=== PATIENT | female | born 1955 | race Caucasian/White ===

== ENCOUNTER 2018-02-25 14:56 | Inpatient (IN) ==
[2018-02-25 16:45] LABS: Baso # (Auto) 0.1 th/mm3 (0.0-0.2); Baso % (Auto) 0.4 % (0.0-2.0); Eos # (Auto) 0.3 th/mm3 (0.0-0.4); Eos % (Auto) 2.3 % (0.0-4.0); Lymph # (Auto) 2.3 th/mm3 (1.0-4.8); Lymph % (Auto) 18.1 % (9.0-44.0); Mean Corpuscular Hemoglobin 36.6 pg (27.0-34.0); Mean Corpuscular Volume 101.7 fL (80.0-100.0); Mean Platelet Volume 8.7 fL (7.0-11.0); Mono % (Auto) 7.5 % (0.0-8.0); Neut # (Auto) 9.1 th/mm3 (1.8-7.7); Neut % (Auto) 71.7 % (16.0-70.0); Platelet Count 255 th/mm3 (150-450); Red Blood Count 1.77 mil/mm3 (4.00-5.30); White Blood Count 12.8 th/mm3 (4.0-11.0)
[2018-02-25 16:53] LABS: Activated Partial Thrombo Time 24.1 sec (23.4-31.7)
[2018-02-25] MEDS ORDERED: Pantoprazole Inj 80 MG in Sodium Chlor 0.9% Inj 100 ML IV.CONT SCH (17:00)
[2018-02-25 17:01] LABS: Hemoglobin 6.5 gm/dL (11.6-15.3)
[2018-02-25 17:05] LABS: Albumin 3.3 g/dL (3.4-5.0); Anion Gap 9 meq/L (5-15); Aspartate Aminotransferase 44 U/L (15-37); Blood Urea Nitrogen 19 mg/dL (7-18); Calcium 8.9 mg/dL (8.5-10.1); Chloride 102 meq/L (98-107); Glomerular Filtration Rate 59 mL/min (>89); Glucose,Random 107 mg/dL (74-106); Potassium 3.9 meq/L (3.5-5.1); Sodium 137 meq/L (136-145)
[2018-02-25 17:06] LABS: Alanine Aminotransferase 31 U/L (10-53)
[2018-02-25 17:08] LABS: Alkaline Phosphatase 64 U/L (45-117); Total Protein 6.8 g/dL (6.4-8.2)
[2018-02-25 17:40] LABS: Eosinophils 1 % (0-4); Lymphocytes 12 % (9-44); Monocytes 2 % (0-8)
--- NOTE | 2018-02-25 17:42 | ED ---
HPI General Chief Complaint: Recheck/Abnormal Lab/Rx Stated Complaint: Anemic Complaint/Doctor Sent Time Seen by Provider: 02/25/18 16:05 Source: patient and family Mode of arrival: ambulatory Limitations: no limitations History of Present Illness HPI narrative: 62-year-old female that presents to the ED for evaluation of abnormal labs. Per patient she went to see her primary care doctor Dr. Frazier yesterday and she was evaluated for shortness of breath and weakness. Per the patient she was evaluated and had some imaging as well as labs. Per patient she was told that the x-rays show some masses on her axilla and chest. Today she received a call that her hemoglobin was low and recommend that she comes here for get a transfusion. She came here for evaluation of this. Per patient she does have a history of anemia but has never had a need for transfusion. She states that yesterday she has some dark stools. She denies having dark stools before. No bleeding from any other source. Denies take any blood thinners. She was told by the Dr. Frazier to start an aspirin yesterday but has not done so. Per patient she does not really take any medications other than [id number] medications. Denies any urinary or bowel movement issues. No chest pain but does complain of shortness of breath with exertion. Feels weak. No history of this in the past. She denies any pain of any kind. Related Data Home Medications Medication Instructions Recorded Confirmed diphenhydramine HCl [Benadryl] 25 mg PO Q4-6H PRN 02/25/18 02/25/18 ranitidine HCl 75 mg PO DAILY PRN 02/25/18 02/25/18 Allergies Allergy/AdvReac Type Severity Reaction Status Date / Time No Known Allergies Allergy Verified 02/25/18 15:39 Review of Systems ROS: all other systems reviewed are negative [facility] Medical History Medical History Anemia (Acute) GERD (gastroesophageal reflux disease) (Acute) Hiatal hernia (Acute) Surgical History Surgical History History of section (Acute) Hx of appendectomy (Acute) Social History Social History Substance History: No History of Abuse Second Hand Smoke Exposure: Yes Smoking Status: Current every day smoker Tobacco Type: Cigarettes How Often Do You Have a Drink Containing Alcohol: Never Recent Travel in [facility] within the Last 8 Weeks: No Recent Out of Country Travel within the Last 8 Weeks: No Immunization History Tetanus Immunization: <5 Years Exam Narrative Exam Narrative: GENERAL: Well-appearing SKIN: Focused skin assessment warm/dry. HEAD: Atraumatic. Normocephalic. EYES: Pupils equal and round. No scleral icterus. No injection or drainage. ENT: No nasal bleeding or discharge. Mucous membranes pink and moist. Tongue is midline. No uvula deviation. NECK: Trachea midline. No JVD. CARDIOVASCULAR: Regular rate and rhythm. No murmur appreciated. RESPIRATORY: No accessory muscle use. Clear to auscultation. Breath sounds equal bilaterally. GASTROINTESTINAL: Abdomen soft, non-tender, nondistended. Hepatic and splenic margins not palpable. Rectal exam done with female nurse present at all times. No obvious blood but there is focal blood and Hemoccult positive. MUSCULOSKELETAL: No obvious deformities. No clubbing. No cyanosis. No edema. Full range of motion of the upper and lower extremities bilaterally. 2+ pulses bilaterally. NEUROLOGICAL: Awake and alert. No obvious cranial nerve deficits. Motor grossly within normal limits. Normal speech. PSYCHIATRIC: Appropriate mood and affect; insight and judgment normal. Procedures Hemaprompt Stool Procedural Steps Taken: specimen placed in appropriate test area, developer placed on specimen and control areas and controls appropriately positive and negative Hemaprompt Stool Result: positive Course Initial Documented Vital Signs Temperature 98.4 F 02/25/18 15:37 Pulse Rate 103 H 02/25/18 15:37 Respiratory Rate 20 02/25/18 15:37 Blood Pressure 118/57 L 02/25/18 15:37 Pulse Oximetry 100 02/25/18 15:37 Last Documented Vital Signs Temperature 98.4 F 02/25/18 15:37 Pulse Rate 115 H 02/25/18 17:34 Respiratory Rate 15 02/25/18 16:12 Blood Pressure 110/63 02/25/18 16:12 Pulse Oximetry 99 02/25/18 16:24 Medical Decision Making MDM Narrative Medical decision making narrative: 62-year-old female that presents to the ED for evaluation of symptomatic anemia. Patient was properly examined and was found to have signs and symptoms consistent with anemia. Labs and imaging were ordered here. Hemoccult was positive. Likely this is GI bleed related. Patient's hemoglobin here is 6.5 at the recommend transfusion of 2 units at least for now. Patient has no history of heart disease. Dr. Frazier actually call me to let me know about the patient. He apparently did a full workup yesterday and all the blood work came back today which is why the patient was brought here. He prefers to the patient be admitted to have a GI consult as well as possible CT chest with contrast done to see what the masses are as he is concerned that this could be tumor related as well. Patient was told results and agrees with admission plan. Case discussed with Dr. Vargas who agrees admission to his service. Patient was already started by me on Protonix drip as well as the 2 units of blood were ordered by me. Medical Screen Exam Complete: Yes Emergency Medical Condition: Yes Differential Diagnosis Differential Diagnosis: GI bleed versus symptomatic anemia versus chest mass versus cancer versus peptic ulcer disease Medical Records Medical records reviewed: Yes I reviewed the patient's medical records. Lab Data Lab results reviewed: Yes I reviewed the patient's lab results. Result diagrams: 02/25/18 15:28 02/25/18 15:28 Lab Results 02/25/18 02/25/18 02/25/18 Range/Units 15:28 15:28 15:28 WBC 12.8 H (4.0-11.0) th/mm3 RBC 1.77 L (4.00-5.30) mil/mm3 Hgb 6.5 L* (11.6-15.3) gm/dL Hct 18.0 L* (35.0-46.0) % MCV 101.7 H (80.0-100.0) fL MCH 36.6 H (27.0-34.0) pg MCHC 36.0 (32.0-36.0) % RDW 16.0 (11.6-17.2) % Plt Count 255 (150-450) th/mm3 MPV 8.7 (7.0-11.0) fL Prelim Diff (Auto) Slide review pending Neut % (Auto) 71.7 H (16.0-70.0) % Lymph % (Auto) 18.1 (9.0-44.0) % [place] % (Auto) 7.5 (0.0-8.0) % Eos % (Auto) 2.3 (0.0-4.0) % Baso % (Auto) 0.4 (0.0-2.0) % Neut # (Auto) 9.1 H (1.8-7.7) th/mm3 Lymph # (Auto) 2.3 (1.0-4.8) th/mm3 [place] # (Auto) 1.0 H (0.0-0.9) th/mm3 Eos # (Auto) 0.3 (0.0-0.4) th/mm3 Baso # (Auto) 0.1 (0.0-0.2) th/mm3 Differential Comment . PT 10.0 (9.8-11.6) sec INR 1.0 Ratio APTT 24.1 (23.4-31.7) sec Sodium 137 (136-145) meq/L Potassium 3.9 (3.5-5.1) meq/L Chloride 102 (98-107) meq/L Carbon Dioxide 26.0 (21.0-32.0) meq/L Anion Gap 9 (5-15) meq/L BUN 19 H (7-18) mg/dL Creatinine 0.97 (0.50-1.00) mg/dL Estimated GFR 59 L (>89) mL/min Random Glucose 107 H (74-106) mg/dL Calcium 8.9 (8.5-10.1) mg/dL Total Bilirubin 0.3 (0.2-1.0) mg/dL AST 44 H (15-37) U/L ALT 31 (10-53) U/L Alkaline Phosphatase 64 (45-117) U/L Total Protein 6.8 (6.4-8.2) g/dL Albumin 3.3 L (3.4-5.0) g/dL Blood Type Antibody Screen MTS Gel Crossmatch Bld Prod Order Comment 02/25/18 02/25/18 Range/Units 16:16 17:12 WBC (4.0-11.0) th/mm3 RBC (4.00-5.30) mil/mm3 Hgb (11.6-15.3) gm/dL Hct (35.0-46.0) % MCV (80.0-100.0) fL MCH (27.0-34.0) pg MCHC (32.0-36.0) % RDW (11.6-17.2) % Plt Count (150-450) th/mm3 MPV (7.0-11.0) fL Prelim Diff (Auto) Neut % (Auto) (16.0-70.0) % Lymph % (Auto) (9.0-44.0) % [place] % (Auto) (0.0-8.0) % Eos % (Auto) (0.0-4.0) % Baso % (Auto) (0.0-2.0) % Neut # (Auto) (1.8-7.7) th/mm3 Lymph # (Auto) (1.0-4.8) th/mm3 [place] # (Auto) (0.0-0.9) th/mm3 Eos # (Auto) (0.0-0.4) th/mm3 Baso # (Auto) (0.0-0.2) th/mm3 Differential Comment PT (9.8-11.6) sec INR Ratio APTT (23.4-31.7) sec Sodium (136-145) meq/L Potassium (3.5-5.1) meq/L Chloride (98-107) meq/L Carbon Dioxide (21.0-32.0) meq/L Anion Gap (5-15) meq/L BUN (7-18) mg/dL Creatinine (0.50-1.00) mg/dL Estimated GFR (>89) mL/min Random Glucose (74-106) mg/dL Calcium (8.5-10.1) mg/dL Total Bilirubin (0.2-1.0) mg/dL AST (15-37) U/L ALT (10-53) U/L Alkaline Phosphatase (45-117) U/L Total Protein (6.4-8.2) g/dL Albumin (3.4-5.0) g/dL Blood Type O Positive Antibody Screen Negative MTS Gel Crossmatch See Detail Bld Prod Order Comment Discharge Plan Physicians Team ED Provider: Eric Lindquist ED Midlevel Provider: Augustin Amaya Primary Care Provider: Justyn Frazier Rxs /Orders / Referrals /Forms Prescriptions: No Action ranitidine HCl 75 mg Tablet 75 mg PO DAILY PRN (Reason: Acid Reflux) RF: 0 diphenhydramine HCl [Benadryl] 25 mg Capsule 25 mg PO Q4-6H PRN (Reason: Allergic Symptoms) RF: 0 Discharge Interventions Interventions: Vital Signs Last Done: 02/25/18 16:12 Status ED Status: Triaged
--- NOTE | 2018-02-25 19:16 | CT ---
EXAM DATE: 02/25/2018 6:49 PM EDT AGE/SEX: 62 years / Female INDICATIONS: Mass on outpatient x-ray yesterday. CLINICAL DATA: This is the patient's initial encounter. Patient reports that signs and symptoms have been present for 1 day and indicates a pain score of 0/10. MEDICAL/SURGICAL HISTORY: Hiatal hernia. Anemia. Gastroesophageal reflux disease. Appendectomy. section. RADIATION DOSE: 9.59 CTDI (mGy) COMPARISON: No prior exams available for comparison. TECHNIQUE: Multiple contiguous axial images were obtained through the chest during bolus infusion of 80 ml Omnipaque 350 (iohexol) nonionic water-soluble contrast as a single exam dose. Images were obtained in suspended respiration using multiple row detector helical technique. Using automated exp osure control and adjustment of the mA and/or kV according to patient size, radiation dose was kept a s low as reasonably achievable to obtain optimal diagnostic quality images. DICOM format image data is available electronically for review and comparison. FINDINGS: Lungs: There are a few tiny less than 5 mm nodule seen in the anterior lateral inferior right upper lobe and at the inferior anterior left lower lobe. There some minimal linear density seen at the base s, medial inferior right upper lobe, and the left lingula.. There is some vague density seen in the p osterior medial left lower lobe. Mediastinum: There is good visualization of the great vessels of the middle mediastinum. No evidenc e of mediastinal or hilar adenopathy/mass. Pleurae: No evidence of focal thickening or pleural effusion. Axillae: Unremarkable. Bony Structures: Unremarkable. Miscellaneous: The examination was extended to include the upper abdomen, and both adrenal glands ar e normal in size and configuration. There is a 1.6 cm hypodensity seen at the lateral aspect of the r ight lobe of the liver likely related to a cyst or hemangioma. The patient does appear to have promin ent lymph nodes with surrounding induration in the fat in the right axillary region. The patient does appear to have some asymmetry to the outer right breast. CONCLUSION: 1. Several small pulmonary nodules measuring less than 5 mm which would not be visualized on chest x -ray. These nodules are nonspecific and can be followed with a noncontrast CT examination in 12 month s. 2. Possible adenopathy with surrounding induration seen in the right axillary region and some asymme try to the right outer breast. This finding should be correlated with any clinical findings. The debra st and axilla could be further evaluated with a diagnostic mammogram and ultrasound as necessary. Electronically signed by: Ervin Waldron MD 02/25/2018 7:15 PM EDT
--- NOTE | 2018-02-25 19:47 | P.HP ---
History of Present Illness Service: [facility] HOSPITAL[facility] Primary Care Physician: Justyn Frazier MD, PhD Chief Complaint: sent by PCP for symptomatic anemia History of Present Illness: History of Present Illness HPI narrative: 62-year-old female that presents to the ED for evaluation of abnormal labs. Per patient she went to see her primary care doctor Dr. Frazier yesterday and she was evaluated for shortness of breath and weakness. Per the patient she was evaluated and had some imaging as well as labs. Per patient she was told that the x-rays show some masses on her axilla and chest. Today she received a call that her hemoglobin was low and recommend that she comes here for get a transfusion. She came here for evaluation of this. Per patient she does have a history of anemia but has never had a need for transfusion. She states that yesterday she has some dark stools. She denies having dark stools before. No bleeding from any other source. Denies take any blood thinners. Per patient she does not really take any medications other than [id number] medications. Denies any urinary or bowel movement issues. No chest pain but does complain of shortness of breath with exertion. Feels weak. No history of this in the past. She denies any pain of any kind, does smoke daily. In er found to have hgb 6.5 with positive stool for blood, admit transfuse ,also with ? lung mass CT thorax and will get GI evaluation. - Diagnosis (1) Symptomatic anemia (2) Acute GI bleeding (3) Axillary mass (4) Chest mass Inpatient Certification: I certify that the inpatient services were ordered in accordance with Medicare regulations governing the order. This includes certification that hospital inpatient services are reasonable and necessary and in the case of services not specified as inpatient-only under 42 CFR 419.22(n), that they are appropriately provided as inpatient services in accordance to with the 2-midnight benchmark under 43 CFR 412.3(e) Estimated Total Length of Stay (Days): 3 Plans for Post Hospital Care: Not yet determined Review of Systems All other systems reviewed negative except as stated in HPI PMFSH - History History Provided By: Patient - Medical History Medical History: Medical History (Last Reviewed 02/25/18 @ 19:43 by Zan Vargas MD) Anemia GERD (gastroesophageal reflux disease) Hiatal hernia - Surgical History Surgical History: Surgical History (Last Reviewed 02/25/18 @ 19:43 by Zan Vargas MD) History of section Hx of appendectomy - Tobacco History Second Hand Smoke Exposure: Yes Tobacco Use In Past 30 Days: Yes Smoking Status: Current every day smoker Tobacco Type: Cigarettes - Alcohol History How Often Do You Have a Drink Containing Alcohol: Never - Substance Use History Substance History: No History of Abuse - Travel History Recent Travel in the [place] Within the Last 8 Weeks: No Recent Travel Out of the Country Within the Last 8 Weeks: No - Immunization History Tetanus Immunization: <5 Years Medications and Allergies Active Medications: Active Medications Pantoprazole Sodium 80 mg/ (Sodium Chloride) 100 mls @ 10 mls/hr IV.CONT CONT DEE Sodium Chloride (1/2 Normal Saline Inj) 1,000 mls @ 75 mls/hr IV.CONT .[id number] DEE Ondansetron HCl (Zofran Inj) 4 mg IV.PUSH Q6H PRN PRN Reason: NAUSEA OR VOMITING Allergies Allergy/AdvReac Type Severity Reaction Status Date / Time No Known Allergies Allergy Verified 02/25/18 15:39 Home Medications Medication Instructions Recorded Confirmed Type diphenhydramine HCl [Benadryl] 25 mg PO Q4-6H PRN 02/25/18 02/25/18 History ranitidine HCl 75 mg PO DAILY PRN 02/25/18 02/25/18 History Exam Vital signs: Vital Signs 02/25/18 15:37 02/25/18 16:12 02/25/18 16:24 Temperature 98.4 F Pulse Rate 103 H 101 H Respiratory Rate 20 15 Blood Pressure 118/57 L 110/63 Pulse Oximetry 100 100 99 02/25/18 17:34 02/25/18 17:35 02/25/18 18:14 Temperature Pulse Rate 115 H 94 H Respiratory Rate 20 Blood Pressure 113/61 Pulse Oximetry 99 100 02/25/18 19:35 Temperature 98.9 F Pulse Rate 95 H Respiratory Rate 14 Blood Pressure 94/61 L Pulse Oximetry Intake & Output 02/25/18 02/25/18 02/26/18 06:59 18:59 06:59 Weight 84.822 kg Narrative: GENERAL: SKIN: Warm and dry. HEAD: Normocephalic. EYES: No scleral icterus. No injection or drainage. NECK: Supple, trachea midline. No JVD or lymphadenopathy. CARDIOVASCULAR: Regular rate and rhythm without murmurs, gallops, or rubs. RESPIRATORY: Breath sounds equal bilaterally. No accessory muscle use. GASTROINTESTINAL: Abdomen soft, non-tender, nondistended. rectal positive stool for blood MUSCULOSKELETAL: No cyanosis, or edema. BACK: Nontender without obvious deformity. No CVA tenderness. Results - Labs CBC & Chem 7: 02/25/18 15:28 02/25/18 15:28 Labs: Laboratory Results - last 24 hr 02/25/18 02/25/18 02/25/18 15:28 15:28 15:28 WBC 12.8 H RBC 1.77 L Hgb 6.5 L* Hct 18.0 L* MCV 101.7 H MCH 36.6 H MCHC 36.0 RDW 16.0 Plt Count 255 MPV 8.7 Prelim Diff (Auto) Slide review pending Neut % (Auto) 71.7 H Lymph % (Auto) 18.1 [place] % (Auto) 7.5 Eos % (Auto) 2.3 Baso % (Auto) 0.4 Neut # (Auto) 9.1 H Lymph # (Auto) 2.3 [place] # (Auto) 1.0 H Eos # (Auto) 0.3 Baso # (Auto) 0.1 WBC Differential Manual diff final Seg Neuts % (Manual) 85 H Lymphocytes % (Manual) 12 Monocytes % (Manual) 2 Eosinophils % (Manual) 1 Abs Neuts (Manual) 10.9 H Differential Comment . PT 10.0 INR 1.0 APTT 24.1 Sodium 137 Potassium 3.9 Chloride 102 Carbon Dioxide 26.0 Anion Gap 9 BUN 19 H Creatinine 0.97 Estimated GFR 59 L Random Glucose 107 H Calcium 8.9 Total Bilirubin 0.3 AST 44 H ALT 31 Alkaline Phosphatase 64 Total Protein 6.8 Albumin 3.3 L Blood Type Antibody Screen MTS Gel Crossmatch Bld Prod Order Comment 02/25/18 02/25/18 16:16 17:12 WBC RBC Hgb Hct MCV MCH MCHC RDW Plt Count MPV Prelim Diff (Auto) Neut % (Auto) Lymph % (Auto) [place] % (Auto) Eos % (Auto) Baso % (Auto) Neut # (Auto) Lymph # (Auto) [place] # (Auto) Eos # (Auto) Baso # (Auto) WBC Differential Seg Neuts % (Manual) Lymphocytes % (Manual) Monocytes % (Manual) Eosinophils % (Manual) Abs Neuts (Manual) Differential Comment PT INR APTT Sodium Potassium Chloride Carbon Dioxide Anion Gap BUN Creatinine Estimated GFR Random Glucose Calcium Total Bilirubin AST ALT Alkaline Phosphatase Total Protein Albumin Blood Type O Positive Antibody Screen Negative MTS Gel Crossmatch See Detail Bld Prod Order Comment - Imaging Impressions Chest CT 02/25/18 17:26 CONCLUSION: 1. Several small pulmonary nodules measuring less than 5 mm which would not be visualized on chest x-ray. These nodules are nonspecific and can be followed with a noncontrast CT examination in 12 months. 2. Possible adenopathy with surrounding induration seen in the right axillary region and some asymmetry to the right outer breast. This finding should be correlated with any clinical findings. The breast and axilla could be further evaluated with a diagnostic mammogram and ultrasound as necessary. Caprini VTE Risk Assessment Caprini VTE Risk Assessment: No/Low Risk (score <= 1) Caprini Risk Assessment Model: Point Value = 1 Point Value = 2 Point Value = 3 Point Value = 5 Age 41-60 Minor surgery BMI > 25 kg/m2 Swollen legs Varicose veins or History of unexplained or recurrent spontaneous Oral contraceptives or hormone replacement Sepsis (< 1 month) Serious lung disease, including pneumonia (< 1 month) Abnormal pulmonary function Acute myocardial infarction Congestive heart failure (< 1 month) History of inflammatory bowel disease Medical patient at bed rest Age 61-74 Arthroscopic surgery Major open surgery (> 45 min) Laparoscopic surgery (> 45 min) Malignancy Confined to bed (> 72 hours) Immobilizing plaster cast Central venous access Age >= 75 History of VTE Family history of VTE Factor V Leiden Prothrombin [id number] Lupus anticoagulant Anticardiolipin antibodies Elevated serum homocysteine Heparin-induced thrombocytopenia Other congenital or acquired thrombophilia Stroke (< 1 month) Elective arthroplasty Hip, pelvis, or leg fracture Acute spinal cord injury (< 1 month) Prophylaxis Regimen: Total Risk Factor Score Risk Level Prophylaxis Regimen 0-1 Low Early ambulation 2 Moderate Order ONE of the following: *Sequential Compression Device (SCD) *Heparin 5000 units SQ BID 3-4 Higher Order ONE of the following medications: *Heparin 5000 units SQ TID *Enoxaparin/Lovenox 40 mg SQ daily (WT < 150 kg, CrCl > 30 mL/min) *Enoxaparin/Lovenox 30 mg SQ daily (WT < 150 kg, CrCl > 10-29 mL/min) *Enoxaparin/Lovenox 30 mg SQ BID (WT < 150 kg, CrCl > 30 mL/min) AND/OR *Sequential Compression Device (SCD) 5 or more Highest Order ONE of the following medications: *Heparin 5000 units SQ TID (Preferred with Epidurals) *Enoxaparin/Lovenox 40 mg SQ daily (WT < 150 kg, CrCl > 30 mL/min) *Enoxaparin/Lovenox 30 mg SQ daily (WT < 150 kg, CrCl > 10-29 mL/min) *Enoxaparin/Lovenox 30 mg SQ BID (WT < 150 kg, CrCl > 30 mL/min) AND *Sequential Compression Device (SCD) Assessment and Plan - Assessment (1) Symptomatic anemia Code(s): D64.9 - Anemia, unspecified Status: Acute Plan: will transfuse and recheck cbc consult GI (2) Acute GI bleeding Code(s): K92.2 - Gastrointestinal hemorrhage, unspecified Status: Acute Plan: consult GI transfuse protonix drip (3) Axillary mass Code(s): R22.30 - Localized swelling, mass and lump, unspecified upper limb Status: Acute Plan: will get Rt auxillary ultrasound and also there was abnormality seen breast will get ultrasound (4) Chest mass Code(s): R22.2 - Localized swelling, mass and lump, trunk Status: Acute Plan: nodules appear small can follow up as outpatient - Plan further plan as case develops Code Status: full Discussed Condition With: patient
[2018-02-25] MEDS ORDERED: Sodium Chloride 0.45 % Inj 1,000 ML IV.CONT SCH (20:00)
[2018-02-26 06:00] LABS: Baso # (Auto) 0.1 th/mm3 (0.0-0.2); Baso % (Auto) 0.8 % (0.0-2.0); Eos # (Auto) 0.4 th/mm3 (0.0-0.4); Eos % (Auto) 4.2 % (0.0-4.0); Hematocrit 25.1 % (35.0-46.0); Hemoglobin 8.4 gm/dL (11.6-15.3); Lymph # (Auto) 2.4 th/mm3 (1.0-4.8); Mean Corpuscular HGB Conc 33.4 % (32.0-36.0); Mean Corpuscular Hemoglobin 32.4 pg (27.0-34.0); Mean Corpuscular Volume 97.1 fL (80.0-100.0); Mean Platelet Volume 8.5 fL (7.0-11.0); Mono # (Auto) 0.9 th/mm3 (0.0-0.9); Mono % (Auto) 8.8 % (0.0-8.0); Neut % (Auto) 61.2 % (16.0-70.0); Platelet Count 228 th/mm3 (150-450); Red Blood Count 2.58 mil/mm3 (4.00-5.30); Red Cell Distribution Width 18.5 % (11.6-17.2); White Blood Count 9.7 th/mm3 (4.0-11.0)
[2018-02-26 06:15] LABS: Calcium 8.1 mg/dL (8.5-10.1); Carbon Dioxide 25.7 meq/L (21.0-32.0); Potassium 3.7 meq/L (3.5-5.1)
--- NOTE | 2018-02-26 09:13 | P.PNIM ---
Subjective Interval history: Pt received blood transfusion overnight and is feeling better this morning No further dizziness or SOB. She has been ambulating to the bathroom without difficulty. She reports that she has had reflux for some time and takes Ranitidine and Rolaids for this. Three days ago she had been feeling somewhat constipated and took a laxative. Then two days ago she had a black tarry BM. This occurred twice. She has never been evaluated with an EGD or colonoscopy. Pt was seen by her PCP, Dr. Frazier, two days ago and had labs done that revealed a significant anemia and pt was sent to the ED for transfusion. During that appt she was noted to have a large right breast mass and right adnexal mass. She states that her PCP has placed referrals for diagnostic mammogram She states that she only noticed the mass a few weeks ago. Pt states that it has been many years since her last mammogram. She has a hx of breast cysts. Physical Exam Vital signs: Last Vital Signs Temp 98.8 F 02/26/18 08:00 Pulse 80 02/26/18 08:00 Resp 17 02/26/18 08:00 BP 97/55 L 02/26/18 08:00 Pulse Ox 97 02/26/18 08:00 Narrative: General: NAD, AAOx3 Chest: CTA Breast exam: Large, irregular lateral breast mass in the right breast with a large area of firm adenopathy in the right axilla area. Cardiac: Regular Abd: +BS, soft ND/NT Ext: No edema Results Labs CBC & Chem 7: 02/26/18 04:45 02/26/18 04:[address] 02/25/18 17:26 CONCLUSION: 1. Several small pulmonary nodules measuring less than 5 mm which would not be visualized on chest x-ray. These nodules are nonspecific and can be followed with a noncontrast CT examination in 12 months. 2. Possible adenopathy with surrounding induration seen in the right axillary region and some asymmetry to the right outer breast. This finding should be correlated with any clinical findings. The breast and axilla could be further evaluated with a diagnostic mammogram and ultrasound as necessary. Assessment and Plan Assessment (1) Symptomatic anemia: Code(s): D64.9 - Anemia, unspecified Status: Acute (2) Acute GI bleeding: Code(s): K92.2 - Gastrointestinal hemorrhage, unspecified Status: Acute (3) Axillary mass: Code(s): R22.30 - Localized swelling, mass and lump, unspecified upper limb Status: Acute (4) Chest mass: Code(s): R22.2 - Localized swelling, mass and lump, trunk Status: Acute Plan Symptomatic anemia - Pt is a 62 y/o female with hx of GERD. She presented to the ED for evaluation of symptomatic anemia with shortness of breath and weakness. She was seen by her PCP, Dr. Frazier with these complaints a few days ago and was evaluated with labs and imaging. Per patient she was told that the x-rays show some masses on her axilla and chest. Today she received a call that her hemoglobin was low and recommend that she comes here for get a transfusion. She reported a 2 day hx of some dark stools. No bleeding from any other source. Denies taking any NSAIDs or blood thinners. She has a long hx of reflux and uses OTC antacids/ H2 blockers. She does smoke daily. - In the ED pt was found to be hemoccult positive. - Her Hgb was 6.5 - Pt was transfused with 2 units PRBCs. - Repeat Hgb today of 8.4 - GI is consulted. Pt has never been evaluated with EGD or colonoscopy. - PPI - She is currently NPO - Give IVF while NPO - Supportive care - Monitor labs - DVT prophylaxis with SCDs Right breast mass Right axillary adenopathy - CT Chest (02/25/18): 1. Several small pulmonary nodules measuring less than 5 mm which would not be visualized on chest x-ray. These nodules are nonspecific and can be followed with a noncontrast CT examination in 12 months. 2. Possible adenopathy with surrounding induration seen in the right axillary region and some asymmetry to the right outer breast. This finding should be correlated with any clinical findings. The breast and axilla could be further evaluated with a diagnostic mammogram and ultrasound as necessary. - Discussed with Radiology/US department and they cannot perform any diagnostic breast exams here as an inpt. - Pts PCP, Dr. Frazier, has already placed referral for diagnostic mammogram per the pt. Pt will likely need biopsy of this mass as well. -Offered to have the patient seen by a breast surgeon while she is here but she is anxious for discharge and does not want that to keep her in the hospital over the weekend Discharge Planning: Patient examined. Assessment and plan formulated with Lizzie Metcalf PA-C. I agree with the above. going for egd. refused to stay for colonoscopy unable to get mammagram or u/s in hospital due to policies. concern for breast ca. will discuss with pcp who was also aware. 2 unit blood. hgb over 8. She is insisiting on dc home after EGD. Progress Note: Quality VTE Deep Vein Thrombosis/Pulmonary Embolism Present on Admission: No _ (1) Axillary mass Qualifiers: Laterality:
--- NOTE | 2018-02-26 11:49 | P.CONGI ---
History of Present Illness Consult date: 02/26/18 Chief complaint: Symptomatic Anemia, GI Bleed, Chest Masses History of Present Illness: This is a pleasant 62-year-old female that presents to the ED for evaluation of abnormal labs which were done for shortness of breath and fatigue. labs revealed anemia, positive stool for blood, hgb on admission is 6.5. today is 8.4 s/p 2 units of blood. Patient endorses black tarry stools X 2 on but non since. She denies having dark stools before. No hematochezia, hematemesis, or abd pain. Denies take any blood thinners. Takes NSAIDs as needed. No previous EGD/colonoscopy. She has on going issues with indigestion and takes Tums and Zantac as needed. CT of the chest revealed lung nodules and adenopathy surrounding induration seen in the right axillary region. <Scout Aguiar - Last Filed: 02/26/18 11:36> Review of Systems All other systems reviewed negative except as stated in HPI <Scout Aguiar - Last Filed: 02/26/18 11:36> PMFSH - History History Provided By: Patient - Medical History Medical History: Medical History (Last Reviewed 02/25/18 @ 19:43 by Zan Vargas MD) Anemia GERD (gastroesophageal reflux disease) Hiatal hernia - Surgical History Surgical History: Surgical History (Last Reviewed 02/25/18 @ 19:43 by Zan Vargas MD) History of section Hx of appendectomy - Tobacco History Second Hand Smoke Exposure: No Tobacco Use In Past 30 Days: Yes Smoking Status: Current every day smoker Tobacco Type: Cigarettes - Alcohol History How Often Do You Have a Drink Containing Alcohol: Never - Substance Use History Substance History: No History of Abuse - Travel History Recent Travel in the [place] Within the Last 8 Weeks: No Recent Travel Out of the Country Within the Last 8 Weeks: No - Immunization History Tetanus Immunization: Unsure Hx Influenza Vaccine This Season: No <Scout Aguiar - Last Filed: 02/26/18 11:36> - Medical History Medical History: Medical History (Last Reviewed 02/25/18 @ 19:43 by Zan Vargas MD) Anemia GERD (gastroesophageal reflux disease) Hiatal hernia - Surgical History Surgical History: Surgical History (Last Reviewed 02/25/18 @ 19:43 by Zan Vargas MD) History of section Hx of appendectomy <Debo Nolasco - Last Filed: 02/26/18 13:17> Medications and Allergies Active Medications: Active Medications Pantoprazole Sodium 80 mg/ (Sodium Chloride) 100 mls @ 10 mls/hr IV.CONT [facility] Last Admin: 02/26/18 05:04 Dose: 10 mls/hr Sodium Chloride (1/2 Normal Saline Inj) 1,000 mls @ 75 mls/hr IV.CONT .[id number] [facility] Last Admin: 02/26/18 09:25 Dose: Not Given Ondansetron HCl (Zofran Inj) 4 mg IV.PUSH Q6H PRN PRN Reason: NAUSEA OR VOMITING <Scout Aguiar - Last Filed: 02/26/18 11:36> Active Medications: Active Medications Pantoprazole Sodium 80 mg/ (Sodium Chloride) 100 mls @ 10 mls/hr IV.[facility] Last Admin: 02/26/18 05:04 Dose: 10 mls/hr Sodium Chloride (1/2 Normal Saline Inj) 1,000 mls @ 75 mls/hr IV.CONT .[id number] [facility] Last Admin: 02/26/18 09:25 Dose: Not Given Ondansetron HCl (Zofran Inj) 4 mg IV.PUSH Q6H PRN PRN Reason: NAUSEA OR VOMITING <Debo Nolasco - Last Filed: 02/26/18 13:17> Allergies Allergy/AdvReac Type Severity Reaction Status Date / Time No Known Allergies Allergy Verified 02/25/18 15:39 Home Medications Medication Instructions Recorded Confirmed Type diphenhydramine HCl [Benadryl] 25 mg PO Q4-6H PRN 02/25/18 02/25/18 History ranitidine HCl 75 mg PO DAILY PRN 02/25/18 02/25/18 History Exam Vital signs: Vital Signs 02/25/18 15:37 02/25/18 16:12 02/25/18 16:24 Temperature 98.4 F Pulse Rate 103 H 101 H Respiratory Rate 20 15 Blood Pressure 118/57 L 110/63 Pulse Oximetry 100 100 99 02/25/18 17:34 02/25/18 17:35 02/25/18 18:14 Temperature Pulse Rate 115 H 94 H Respiratory Rate 20 Blood Pressure 113/61 Pulse Oximetry 99 100 02/25/18 19:35 02/25/18 19:52 02/25/18 20:55 Temperature 98.9 F 98.7 F 98.7 F Pulse Rate 95 H 84 96 H Respiratory Rate 14 14 14 Blood Pressure 94/61 L 90/61 L 96/59 L Pulse Oximetry 02/25/18 21:10 02/25/18 21:26 02/25/18 22:30 Temperature 98.8 F 98.7 F 98.5 F Pulse Rate 90 89 94 H Respiratory Rate 14 17 Blood Pressure 108/65 117/62 109/62 Pulse Oximetry 97 96 02/25/18 22:49 02/26/18 00:00 02/26/18 01:44 Temperature 97.6 F 98.4 F 98.3 F Pulse Rate 90 94 H 86 Respiratory Rate 18 17 18 Blood Pressure 103/53 L 113/61 111/61 Pulse Oximetry 97 96 96 02/26/18 04:00 02/26/18 08:00 02/26/18 11:25 Temperature 97.9 F 98.8 F Pulse Rate 86 80 Respiratory Rate 16 17 Blood Pressure 99/57 L 97/55 L Pulse Oximetry 98 97 98 Intake & Output 02/25/18 02/26/18 02/26/18 18:59 06:59 18:59 Intake Total 800 / 800 Balance 800 / 800 Weight 84.822 kg 83.5 kg Intake: Intake (Blood Product) Amt 800 / 800 Rbc As-3 Leukoreduced Unit 400 / 400 [id number] Rbc As-3 Leukoreduced Unit 400 / 400 [id number] Other: # Voids 3 Date of Last Bowel Movement 02/25/18 Weight On Admission 83.5 kg - Constitutional no acute distress - Routine HEENT Exam Head: Present: normocephalic - Routine Respiratory Exam Present: CTA bilaterally - Routine Cardiovascular Exam Present: RRR - Routine Abdominal Exam Present: soft, normoactive bowel sounds. Absent: tenderness - Routine Extremities Exam Absent: edema - Routine Neurological Exam Present: alert, oriented X3 <AmScout deleon - Last Filed: 02/26/18 11:36> Vital signs: Vital Signs 02/25/18 15:37 02/25/18 16:12 02/25/18 16:24 Temperature 98.4 F Pulse Rate 103 H 101 H Respiratory Rate 20 15 Blood Pressure 118/57 L 110/63 Pulse Oximetry 100 100 99 02/25/18 17:34 02/25/18 17:35 02/25/18 18:14 Temperature Pulse Rate 115 H 94 H Respiratory Rate 20 Blood Pressure 113/61 Pulse Oximetry 99 100 02/25/18 19:35 02/25/18 19:52 02/25/18 20:55 Temperature 98.9 F 98.7 F 98.7 F Pulse Rate 95 H 84 96 H Respiratory Rate 14 14 14 Blood Pressure 94/61 L 90/61 L 96/59 L Pulse Oximetry 02/25/18 21:10 02/25/18 21:26 02/25/18 22:30 Temperature 98.8 F 98.7 F 98.5 F Pulse Rate 90 89 94 H Respiratory Rate 14 17 Blood Pressure 108/65 117/62 109/62 Pulse Oximetry 97 96 02/25/18 22:49 02/26/18 00:00 02/26/18 01:44 Temperature 97.6 F 98.4 F 98.3 F Pulse Rate 90 94 H 86 Respiratory Rate 18 17 18 Blood Pressure 103/53 L 113/61 111/61 Pulse Oximetry 97 96 96 02/26/18 04:00 02/26/18 08:00 02/26/18 11:25 Temperature 97.9 F 98.8 F Pulse Rate 86 80 Respiratory Rate 16 17 Blood Pressure 99/57 L 97/55 L Pulse Oximetry 98 97 98 02/26/18 12:00 Temperature 99.0 F Pulse Rate 83 Respiratory Rate 18 Blood Pressure 110/58 L Pulse Oximetry 97 Intake & Output 02/25/18 02/26/18 02/26/18 18:59 06:59 18:59 Intake Total 800 / 800 Balance 800 / 800 Weight 84.822 kg 83.5 kg Intake: Intake (Blood Product) Amt 800 / 800 Rbc As-3 Leukoreduced Unit 400 / 400 [id number] Rbc As-3 Leukoreduced Unit 400 / 400 [id number] Other: # Voids 3 Date of Last Bowel Movement 02/25/18 Weight On Admission 83.5 kg <Debo Nolasco - Last Filed: 02/26/18 13:17> Results - Labs CBC & Chem 7: 02/26/18 04:45 02/26/18 04:45 Labs: Laboratory Results - last 24 hr 02/25/18 02/25/18 02/25/18 15:28 15:28 15:28 WBC 12.8 H RBC 1.77 L Hgb 6.5 L* Hct 18.0 L* MCV 101.7 H MCH 36.6 H MCHC 36.0 RDW 16.0 Plt Count 255 MPV 8.7 Prelim Diff (Auto) Slide review pending Neut % (Auto) 71.7 H Lymph % (Auto) 18.1 [place] % (Auto) 7.5 Eos % (Auto) 2.3 Baso % (Auto) 0.4 Neut # (Auto) 9.1 H Lymph # (Auto) 2.3 [place] # (Auto) 1.0 H Eos # (Auto) 0.3 Baso # (Auto) 0.1 WBC Differential Manual diff final Seg Neuts % (Manual) 85 H Lymphocytes % (Manual) 12 Monocytes % (Manual) 2 Eosinophils % (Manual) 1 Abs Neuts (Manual) 10.9 H Differential Comment . PT 10.0 INR 1.0 APTT 24.1 Sodium 137 Potassium 3.9 Chloride 102 Carbon Dioxide 26.0 Anion Gap 9 BUN 19 H Creatinine 0.97 Estimated GFR 59 L Random Glucose 107 H Calcium 8.9 Total Bilirubin 0.3 AST 44 H ALT 31 Alkaline Phosphatase 64 Total Protein 6.8 Albumin 3.3 L Blood Type Antibody Screen MTS Gel Crossmatch Bld Prod Order Comment 02/25/18 02/25/18 02/26/18 16:16 17:12 04:45 WBC 9.7 RBC 2.58 L Hgb 8.4 L Hct 25.1 L MCV 97.1 D MCH 32.4 MCHC 33.4 RDW 18.5 H D Plt Count 228 MPV 8.5 Prelim Diff (Auto) Neut % (Auto) 61.2 Lymph % (Auto) 25.0 [place] % (Auto) 8.8 H Eos % (Auto) 4.2 H Baso % (Auto) 0.8 Neut # (Auto) 6.0 Lymph # (Auto) 2.4 [place] # (Auto) 0.9 Eos # (Auto) 0.4 Baso # (Auto) 0.1 WBC Differential . Seg Neuts % (Manual) Lymphocytes % (Manual) Monocytes % (Manual) Eosinophils % (Manual) Abs Neuts (Manual) Differential Comment Auto diff final PT INR APTT Sodium Potassium Chloride Carbon Dioxide Anion Gap BUN Creatinine Estimated GFR Random Glucose Calcium Total Bilirubin AST ALT Alkaline Phosphatase Total Protein Albumin Blood Type O Positive Antibody Screen Negative MTS Gel Crossmatch See Detail Bld Prod Order Comment 02/26/18 04:45 WBC RBC Hgb Hct MCV MCH MCHC RDW Plt Count MPV Prelim Diff (Auto) Neut % (Auto) Lymph % (Auto) [place] % (Auto) Eos % (Auto) Baso % (Auto) Neut # (Auto) Lymph # (Auto) [place] # (Auto) Eos # (Auto) Baso # (Auto) WBC Differential Seg Neuts % (Manual) Lymphocytes % (Manual) Monocytes % (Manual) Eosinophils % (Manual) Abs Neuts (Manual) Differential Comment PT INR APTT Sodium 141 Potassium 3.7 Chloride 107 Carbon Dioxide 25.7 Anion Gap 8 BUN 17 Creatinine 0.86 Estimated GFR 67 L Random Glucose 91 Calcium 8.1 L D Total Bilirubin AST ALT Alkaline Phosphatase Total Protein Albumin Blood Type Antibody Screen MTS Gel Crossmatch Bld Prod Order Comment - Imaging Impressions Chest CT 02/25/18 17:26 CONCLUSION: 1. Several small pulmonary nodules measuring less than 5 mm which would not be visualized on chest x-ray. These nodules are nonspecific and can be followed with a noncontrast CT examination in 12 months. 2. Possible adenopathy with surrounding induration seen in the right axillary region and some asymmetry to the right outer breast. This finding should be correlated with any clinical findings. The breast and axilla could be further evaluated with a diagnostic mammogram and ultrasound as necessary. <Scout Aguiar - Last Filed: 02/26/18 11:36> - Labs CBC & Chem 7: 02/26/18 04:45 02/26/18 04:45 Labs: Laboratory Results - last 24 hr 02/25/18 02/25/18 02/25/18 15:28 15:28 15:28 WBC 12.8 H RBC 1.77 L Hgb 6.5 L* Hct 18.0 L* MCV 101.7 H MCH 36.6 H MCHC 36.0 RDW 16.0 Plt Count 255 MPV 8.7 Prelim Diff (Auto) Slide review pending Neut % (Auto) 71.7 H Lymph % (Auto) 18.1 [place] % (Auto) 7.5 Eos % (Auto) 2.3 Baso % (Auto) 0.4 Neut # (Auto) 9.1 H Lymph # (Auto) 2.3 [place] # (Auto) 1.0 H Eos # (Auto) 0.3 Baso # (Auto) 0.1 WBC Differential Manual diff final Seg Neuts % (Manual) 85 H Lymphocytes % (Manual) 12 Monocytes % (Manual) 2 Eosinophils % (Manual) 1 Abs Neuts (Manual) 10.9 H Differential Comment . PT 10.0 INR 1.0 APTT 24.1 Sodium 137 Potassium 3.9 Chloride 102 Carbon Dioxide 26.0 Anion Gap 9 BUN 19 H Creatinine 0.97 Estimated GFR 59 L Random Glucose 107 H Calcium 8.9 Total Bilirubin 0.3 AST 44 H ALT 31 Alkaline Phosphatase 64 Total Protein 6.8 Albumin 3.3 L Blood Type Antibody Screen MTS Gel Crossmatch Bld Prod Order Comment 02/25/18 02/25/18 02/26/18 16:16 17:12 04:45 WBC 9.7 RBC 2.58 L Hgb 8.4 L Hct 25.1 L MCV 97.1 D MCH 32.4 MCHC 33.4 RDW 18.5 H D Plt Count 228 MPV 8.5 Prelim Diff (Auto) Neut % (Auto) 61.2 Lymph % (Auto) 25.0 [place] % (Auto) 8.8 H Eos % (Auto) 4.2 H Baso % (Auto) 0.8 Neut # (Auto) 6.0 Lymph # (Auto) 2.4 [place] # (Auto) 0.9 Eos # (Auto) 0.4 Baso # (Auto) 0.1 WBC Differential . Seg Neuts % (Manual) Lymphocytes % (Manual) Monocytes % (Manual) Eosinophils % (Manual) Abs Neuts (Manual) Differential Comment Auto diff final PT INR APTT Sodium Potassium Chloride Carbon Dioxide Anion Gap BUN Creatinine Estimated GFR Random Glucose Calcium Total Bilirubin AST ALT Alkaline Phosphatase Total Protein Albumin Blood Type O Positive Antibody Screen Negative MTS Gel Crossmatch See Detail Bld Prod Order Comment 02/26/18 04:45 WBC RBC Hgb Hct MCV MCH MCHC RDW Plt Count MPV Prelim Diff (Auto) Neut % (Auto) Lymph % (Auto) [place] % (Auto) Eos % (Auto) Baso % (Auto) Neut # (Auto) Lymph # (Auto) [place] # (Auto) Eos # (Auto) Baso # (Auto) WBC Differential Seg Neuts % (Manual) Lymphocytes % (Manual) Monocytes % (Manual) Eosinophils % (Manual) Abs Neuts (Manual) Differential Comment PT INR APTT Sodium 141 Potassium 3.7 Chloride 107 Carbon Dioxide 25.7 Anion Gap 8 BUN 17 Creatinine 0.86 Estimated GFR 67 L Random Glucose 91 Calcium 8.1 L D Total Bilirubin AST ALT Alkaline Phosphatase Total Protein Albumin Blood Type Antibody Screen MTS Gel Crossmatch Bld Prod Order Comment - Imaging Impressions Chest CT 02/25/18 17:26 CONCLUSION: 1. Several small pulmonary nodules measuring less than 5 mm which would not be visualized on chest x-ray. These nodules are nonspecific and can be followed with a noncontrast CT examination in 12 months. 2. Possible adenopathy with surrounding induration seen in the right axillary region and some asymmetry to the right outer breast. This finding should be correlated with any clinical findings. The breast and axilla could be further evaluated with a diagnostic mammogram and ultrasound as necessary. <Debo Nolasco - Last Filed: 02/26/18 13:17> Assessment and Plan - Plan -Anemia/symptomatic- Patient endorses black tarry stools X 2 on but non since. She denies having dark stools before. No hematochezia, hematemesis , or abd pain. Denies take any blood thinners. Takes NSAIDs as needed. No previous EGD/colonoscopy. She has on going issues with indigestion and takes Tums and Zantac as needed.labs revealed anemia, positive stool for blood, hgb on admission is 6.5. today is 8.4 s/p 2 units of blood. - Lung nodules on Ct of the chest - adenopathy surrounding induration seen in the right axillary region. Plan: - NPO - EGD today - Ideally pt needs both EGD/colonoscopy, this was discussed with pt in details However, pt wants to go home, declining at this point, agreed to having EGD done if it will be performed today - Colonoscopy as an OP if pt goes home - Case discussed with Dr. Braithwait - Monitor hh - Transfuse as needed - Cont. Protonix - Pt was seen and examined by Dr. Nolasco and myself and this note is written on her behalf. <Scout Aguiar - Last Filed: 02/26/18 11:36> - Attending Attestation seen, examined agree with above egd today colonoscopy in am if agrees , if not will need to be scheduled op <Debo Nolasco - Last Filed: 02/26/18 13:17>
--- NOTE | 2018-02-26 13:22 | GIPROC ---
[facility] [address] [facility]. [facility], [address] EGD PROCEDURE REPORT EXAM DATE: 02/26/2018 PATIENT NAME: Yoon Ruiz MR #: [id number] BIRTHDATE: 1955 ATTENDING: Debo Nolasco MD ORDER #: [id number] CONTRACT MODELER: Cookie Weir and Joanne Pollard STATUS: inpatient INDICATIONS: The patient is a 62 yr old female here for an EGD due to anemia, gi bleeding PROCEDURE PERFORMED: EGD w/ biopsy EGD w/ control of bleeding egd with ablation using APC MEDICATIONS: Per Anesthesia and None. TOPICAL ANESTHETIC: CONSENT: The patient understands the risks and benefits of the procedure and understands that these risks include, but are not limited to: sedation, allergic reaction, infection, perforation and/or bleeding. Alternative means of evaluation and treatment include, among others: physical exam, x-rays, and/or surgical intervention. The patient elects to proceed with this endoscopic procedure. medical equipment was checked for proper function. Hand hygiene and appropriate measures for infection prevention was taken. After the risks, benefits and alternatives of the procedure were thoroughly explained, Informed consent was verified, confirmed and timeout was successfully executed by the treatment team. The patient was anesthetized with topical anesthesia and the Pentax [id number] endoscope was introduced through the mouth and advanced to the second portion of the duodenum. Retroflexed views revealed a hiatal hernia The gastroscope was then slowly withdrawn and removed. 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 ADVERSE EVENTS: There were no complications. IMPRESSIONS: 1. 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 Retroflexed views revealed a hiatal hernia RECOMMENDATIONS: 1. Anti-reflux regimen 2. Continue PPI 3. Avoid NSAIDS colonoscopy in am if agrees start iron supplementation tid if cbc stable in pm ok to dc home from gi point if dc colonsocopy, cbc next week advancce diet if does not agrre to colonoscopy for am PATIENT CONDITION: stable DISPOSITION: Inpatient REPEAT EXAM: Return 3 months EGD Debo Nolasco MD eSigned: Debo Nolasco MD 02/26/2018 1:22 PM cc: PATIENT NAME: Yoon Ruiz MR#: [id number]
[2018-02-26 15:38] LABS: Baso # (Auto) 0.1 th/mm3 (0.0-0.2); Baso % (Auto) 0.5 % (0.0-2.0); Eos # (Auto) 0.5 th/mm3 (0.0-0.4); Eos % (Auto) 2.9 % (0.0-4.0); Hematocrit 24.3 % (35.0-46.0); Hemoglobin 8.3 gm/dL (11.6-15.3); Lymph # (Auto) 2.4 th/mm3 (1.0-4.8); Lymph % (Auto) 15.1 % (9.0-44.0); Mean Corpuscular HGB Conc 34.2 % (32.0-36.0); Mean Corpuscular Hemoglobin 33.2 pg (27.0-34.0); Mean Platelet Volume 8.3 fL (7.0-11.0); Mono % (Auto) 6.7 % (0.0-8.0); Neut # (Auto) 11.8 th/mm3 (1.8-7.7); Neut % (Auto) 74.8 % (16.0-70.0); Platelet Count 236 th/mm3 (150-450); Red Blood Count 2.51 mil/mm3 (4.00-5.30); Red Cell Distribution Width 18.6 % (11.6-17.2); White Blood Count 15.8 th/mm3 (4.0-11.0)
[2018-02-26 15:39] LABS: Hematocrit 23.7 % (35.0-46.0); Hemoglobin 8.4 gm/dL (11.6-15.3)
--- NOTE | 2018-02-28 00:25 | ECG ---
Date Performed: 02/25/2018 Time Performed: 18:02:47 PTAGE: 62 years EKG: Sinus rhythm PROBABLE LATERAL MYOCARDIAL INFARCTION INFERIOR MYOCARDIAL INFARCTION ABNORMAL ECG PREVIOUS TRACING : 12/04/2011 11.00 Since the previous tracing, no significant change noted DOCTOR: Yves Vincetn Interpretating Date/Time 02/28/2018 00:24:23
== END 2018-02-26 16:15 | disposition home or self-care (01) ==
LOC: NEPE 14:56 → NEDA 17:40 → N06 21:24
PROVIDERS: ADMIT Hospitalist; ATTEND Hospitalist
PROC: PANENDO (2018-02-26 12:50)